=== PATIENT | male | born 1960 | race Caucasian/White ===

== ENCOUNTER 2022-10-25 08:57 | Outpatient (CLI) | payer BC, SELFPAY ==
--- NOTE | 2022-10-25 08:45 | RT.EKG_ITS ---
APPROVED REPORT Exam: Resting ECG Reason for Exam: CAD Patient Location: O HR:52 bpm ECG Measurements Heart Rate 52 AXIS NV 188 P 4 QRSd 134 QRS -1 QT 441 T -25 QTc 411 Conclusion Sinus rhythm...normal P axis, V-rate 50- 99 Atrial premature complex...SV complex w/ short R-R interval Nonspecific intraventricular conduction delay...QRSd >115mS, not LBBB/RBBB Inferior infarct, age indeterminate...Q>35mS, T neg, II III aVF
== END 2022-10-25 08:58 | disposition home or self-care (01) ==
LOC: DI.CARD 08:57
PROVIDERS: PCP Internal Medicine; Visit Provider Internal Medicine Cardiovascular Disease
DX: I25.10 Atherosclerotic heart disease of native coronary artery without angina pectoris (principal)
CPT/HCPCS: 93010

== ENCOUNTER 2023-01-01 09:39 | Day surgery (SDC) | payer BC, SELFPAY ==
[2023-01-01 10:20] VITALS: BP 138/88; PULSE 62; RESP 16; TEMP 36.4; O2SAT 96
[2023-01-01] MEDS: Lactated Ringers 1,000 ML 80 ML IV (10:55)
--- NOTE | 2023-01-01 10:57 | W.SURGCON ---
Date of service: 01/01/23 Time of Service: 10:57 Assessment and Plan Assessment and plan (1) Screening for colon cancer: Status: Acute Assessment and plan: 62-year-old man without symptoms due for colorectal cancer surveillance. Overall plan: Colonoscopy History of Present Illness Narrative: 62-year-old man had a colon polyp removed on last colonoscopy. That was 7-8 years ago. He does not have any symptoms. No family history of colon cancer. 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 was f/u Dr. Maria [facility] [place]. RH 12/31/22: Pt. stated he does not have 5 stents, but has 3, and has had x4 TX's. History of parotid cancer In remission since 2011 Surgical History History of colonoscopy with polypectomy (~12/17/14) [place] Social History (Updated 10/25/22 @ 14:17 by Lydia Crowe RN) Smoking/Tobacco Use Status: Former Tobacco Use Quit Date: 03/04/13 Smoking risk assessment performed?: Yes Alcohol Intake: former Drug use: Never Substance use type: does not use Housing: house current occupation: works for de[employer] Do you feel safe at home: Yes Do you feel safe in your relationship?: Yes Exam Narrative Exam Narrative: General: Nontoxic, comfortable and interactive Neuro: Alert and oriented x3 Psych: Good mood and affect, good insight and understanding into condition Chest: Nonlabored breathing and no wheezing Heart: Regular Results Last Vital Signs Temp 97.5 F L 01/01/23 10:20 Pulse 62 01/01/23 10:20 Resp 16 01/01/23 10:20 BP 138/88 01/01/23 10:20 Pulse Ox 96 01/01/23 10:20
--- NOTE | 2023-01-01 10:58 | COLE_ITS ---
Date of service: 01/01/23 Time of Service: 10:58 Colonoscopy Report Procedure Description: Procedures performed: 1. Colonoscopy with cold forceps polypectomy x2 Preoperative diagnosis: Surveillance colonoscopy, colon polyps Postoperative diagnosis: Colon polyps, mild diverticulosis Surgeon: Candie Sampson Anesthesia: Perry Indication for procedure: Patient is a 62-year-old man with prior history of a colorectal polyp removed 7 to 8 years ago. No family history of colon cancer. No symptoms. Findings: A small 2-3 mm sessile polyp was removed from the sigmoid colon with cold forceps technique. Another small 2-3 mm sessile polyp was removed from the rectum with cold forceps technique. There were multiple, flat, scattered hyperplastic?appearing polyps in the rectum itself as well. These were left alone. Mild diverticular changes are present in the left colon. Surveillance/follow-up recommendations: Depending on path results of the polyps but probably 7 to 10 years is acceptable. Complications: None Blood loss: Minimal Specimens:?? YES Quality of Prep:?? Good Procedure in detail: Written consent was obtained from the patient who was in agreement with the risks, benefits and indications of the procedure.? We went to the endoscopy suite and laid the patient in left lateral decubitus position.? Anesthesia was administered which was tolerated well.? A timeout was performed and when we are all in agreement we began the procedure. Digital rectal exam and visual examination was performed and within normal limits.? A well?lubricated colonoscope was advanced without difficulty all the way to the cecum identified by the ileocecal valve, and triangular folds and appendiceal orifice.? The terminal ileum was briefly intubated and look normal. The scope was then slowly withdrawn.?? Retroflexion was performed in the rect um.? The findings/interventions are noted above. The scope was then removed and the patient tolerated the procedure well and was then taken back to the PACU in hemodynamically stable condition.
--- NOTE | 2023-01-01 10:59 | W.PM.DSUDISC ---
Date of service: 01/01/23 Time of Service: 10:59 Discharge Plan Disposition Patient Disposition: Home Condition: Good Discharge Details Attending Provider: Theron Sampson Home Meds and New Rx's Prescriptions: Continued bisacodyl [Dulcolax (bisacodyl)] 5 mg tablet,delayed release (DR/EC) 5 mg PO ONCE Qty: 4 0RF Rx Instructions: Take per colonoscopy instructions provided by ordering providers office polyethylene glycol 3350 17 gram/dose powder 17 g PO ONCE Qty: 238 0RF Rx Instructions: Take per colonoscopy instructions provided by ordering providers office hydrocortisone [Anusol-HC] 2.5 % cream with perineal applicator 1 applic [place] QD-BID PRN aspirin [Adult Aspirin Regimen] 81 mg tablet,delayed release (DR/EC) 81 mg PO DAILY fluorouracil 5 % cream 1 applic topical BID lisinopril 5 mg tablet 5 mg PO DAILY metoprolol succinate 50 mg tablet extended release 24 hr 50 mg PO HS nitroglycerin [Nitrostat] 0.4 mg tablet, sublingual 0.4 mg sublingual Q5M PRN Rx Instructions: do not exceed 3 doses per episode simvastatin 80 mg tablet 80 mg PO DAILY ibuprofen [Advil] 200 mg tablet 400 mg PO ONCE Discharge Instructions Stand Alone Forms: Colonoscopy Post Instructions Activity:: Activity as Tolerated Diet:: As Tolerated DS: Diagnosis Discharge Diagnosis (1) Screening for colon cancer: Status: Acute Asessment and Plan: FINDINGS: A couple of small polyps were found today. There is nothing to worry about. Depending on the results from pathology on what type they are will dictate when your next colonoscopy should be done. Probably in 7 to 10 years. Mild diverticulosis was seen today which is extremely common, benign and nothing needs to be done about it.
--- NOTE | 2023-01-01 11:33 | W.ANESPRE ---
General Info Date of Service Date Performed: 01/01/23 Height: 5 ft 11 in Weight: 89.9 kg Body Mass Index (BMI): 27.6 Surgical Procedure: Operation Date: 01/01/23 11:50 Proposed Procedure Side Surgeon kartik Sampson MD Meds Allergies and Home Medications Allergies Allergy/AdvReac Type Severity Reaction Status Date / Time No Known Allergies Allergy Verified 01/01/23 10:40 Home Medication Medication Instructions Recorded aspirin 81 mg tablet,delayed 81 mg PO DAILY 03/20/22 release (Adult Aspirin Regimen) fluorouracil 5 % topical cream 1 applic topical BID 03/20/22 hydrocortisone 2.5 % topical cream 1 applic [place] QD-BID PRN 03/20/22 with perineal applicator (Anusol-HC) lisinopril 5 mg tablet 5 mg PO DAILY 03/20/22 metoprolol succinate 50 mg 50 mg PO HS 03/20/22 tablet,extended release 24 hr nitroglycerin 0.4 mg sublingual 0.4 mg sublingual Q5M PRN 03/20/22 tablet (Nitrostat) simvastatin 80 mg tablet 80 mg PO DAILY 03/20/22 bisacodyl 5 mg tablet,delayed 5 mg PO ONCE #4 tabs 10/04/22 release (Dulcolax (bisacodyl)) polyethylene glycol 3350 17 17 g PO ONCE #238 grams 10/04/22 gram/dose oral powder ibuprofen 200 mg tablet (Advil) 400 mg PO ONCE 01/01/23 Current Visit Medications: Current Medications Generic Name Dose Route Start Last Admin Trade Name Freq PRN Reason Stop Dose Admin Ringer's Solution 1,000 mls @ 80 mls/hr 01/01/23 06:00 01/01/23 10:55 IV 01/30/23 23:59 80 mls/hr INFUSION SHEELA Administration IV Miscellaneous Supplies 1 each 01/01/23 06:00 Iv Access IV 01/30/23 23:59 DIRECTED SHEELA Sodium Chloride 0 ml 01/01/23 06:00 Normal Saline Flush 10 Ml Syr IV 01/30/23 23:59 PRN PRN Sodium Chloride 0 ml 01/01/23 06:00 Normal Saline 10 Ml Vial IJ 01/30/23 23:59 DIRECTED PRN Sterile Water 0 ml 01/01/23 06:00 Water,Injection,Sterile 10 Ml Vial IJ 01/30/23 23:59 DIRECTED PRN PFSH Active Problems Active Problems: Problem Status Onset Code Basal cell carcinoma C44.91 Parotid mass K11.8 CHERRY (obstructive sleep apnea) G47.33 HTN (hypertension) with goal to be determined I10 HLD (hyperlipidemia) E78.5 Squamous cell carcinoma of head and neck C76.0 Hemorrhoids K64.9 Screening for colon cancer Z12.11 Medical History Medical History Tear of meniscus of left knee Myocardial infarct 1992, 1998, 2007, 2013, CAD (coronary artery disease) 10/22/22 long cardiac history including ND's x5 wit stents ',08,'14. was f/u Dr. Maria [facility] [place] last apt 01/22. RH 12/31/22: Pt. stated he does not have 5 stents, but has 3, and has had x4 ND's. History of parotid cancer In remission since 2011 Surgical History Surgical History History of colonoscopy with polypectomy (~12/17/14) [place] Tobacco Smoking/Tobacco Use Status: Former Tobacco Use Alcohol Alcohol Intake: former Substance Use Substance use: Never Substance use type: does not use Vital Signs and Lab Results Vital Signs Most Recent Vital Signs in EMR: Most Recent Vital Signs Temp Pulse Resp BP Pulse Ox 36.4 C L 62 16 138/88 96 01/01/23 10:20 01/01/23 10:20 01/01/23 10:20 01/01/23 10:20 01/01/23 10:20 Lab Results Blood Type / Crossmatch: No Data to Display Complete Blood Count: No Data to Display Complete Metabolic Panel: No Data to Display Liver Function Panel: No Data to Display Coagulation Panel: No Data to Display Cardiac Panel: No Data to Display Arterial Blood Gas: No Data to Display Venous Blood Gas: No Data to Display Pancreas Panel: No Data to Display Thyroid Panel: No Data to Display Infectious Disease: No Data to Display Blood Cultures: No Data to Display Toxicology Panel: No Data to Display Anesthesia Assessment and Plan Anesthesia History Personal History: No History of Anesthesia Complications Family History: No Family History of Anesthesia Complications Exercise Tolerance Exercise Tolerance: Metabolic Equivalents>4 Pertinent Negatives Pertinent Negatives: No Symptoms of GERD and No Major Pulmonary Symptoms or Complaints Cardiac & Pulmonary Exam Cardiac Exam: Normal S1/S2 Heart Sounds Pulmonary Exam: Clear Bilateral Breath Sounds Implantable Cardiac Device Does patient have a Pacemaker or an ICD?: No Airway Exam Known Difficult Airway: No Mallampati Class: 2 Mouth Opening: Normal (> 3cm) Thyromental Distance: Less than 3 cm Neck Range of Motion: Full ROM Neck Circumference: Normal Teeth Condition: Normal Dentition ASA Classification ASA Score: ASA 3 Emergency Case?: No NPO Status NPO Status: NPO Clears >2 hours, Solids >8 hours Anesthesia Plan Resuscitation Status: Full Code Anesthesia Technique: General Anesthesia Airway Planned: Natural Airway Monitors Used: Standard Monitors
[2023-01-01 11:35] VITALS: BMI 27.6
--- NOTE | 2023-01-01 12:05 | BOWEL_PTH ---
PATIENT: Campos Wakefield LOC: [facility] U#:[id number] AGE/SX: 62/M ROOM: RE01/01/[address]: Theron Sampson : 1960 BED: DIS: 01/01/2023 SPEC #: [id number] RECD: 01/01/23 13:00 STATUS: ALLISON RETom #: [id number] AMBER: 01/01/23 12:[address]: Theron Sampson DEPT: Surgical Specimen RECD BY: Brittney Castro Tissues: 1 - BIOPSY BOWEL Procedures: GROSS AND MICRO LEVEL 4 Comments: [id number]
[2023-01-01 12:17] VITALS: BP 108/72; PULSE 65; RESP 15; TEMP 36.6; O2SAT 95
--- NOTE | 2023-01-01 12:25 | W.COLOREPORT ---
Date of service: 01/01/23 Time of Service: 12:25 Colonoscopy Report Procedure Description: Procedures performed: 1. Colonoscopy with cold forceps polypectomy x1 Preoperative diagnosis: Surveillance colonoscopy Postoperative diagnosis: Colon polyps, sigmoid diverticulosis, sigmoid fibrosis, mild grade 1 internal hemorrhoids Surgeon: Candie Sampson Anesthesia: Perry Indication for procedure: Patient is a 62-year-old man with a history of prior adenomatous polyp removal in the past but no family history of colon cancer. His last colonoscopy was 7 to 8 years ago. Findings: A 3 to 5 mm sessile polyp was removed from the transverse colon with cold forceps technique. No other polyps seen. There is significant, borderline?severe diverticular disease throughout the sigmoid colon. No active inflammation however there is significant sigmoid fibrosis/stenosis but no actual stricture anywhere. Mild grade 1 internal hemorrhoid disease seen. Surveillance/follow-up recommendations: I think a repeat colonoscopy in 7 to 10 years is adequate depending on the path results of the polyp either being completely benign or simple adenoma. Complications: None Blood loss: Minimal Specimens:?? YES Quality of Prep:?? Good Procedure in detail: Written consent was obtained from the patient who was in agreement with the risks, benefits and indications of the procedure.? We went to the endoscopy suite and laid the patient in left lateral decubitus position.? Anesthesia was administered which was tolerated well.? A timeout was performed and when we are all in agreement we began the procedure. Digital rectal exam and visual examination was performed and within normal limits.? A well?lubricated colonoscope was advanced without difficulty all the way to the cecum identified by the ileocecal valve, and triangular folds and appendiceal orifice.? It was then slowly withdrawn.?? Retroflexion was performed in the rectum.? The findings/interventions are noted above. The scope was then removed and the patient tolerated the procedure well and was then taken back to the PACU in hemodynamically stable condition.
--- NOTE | 2023-01-01 12:29 | W.PM.DSUDISC ---
Date of service: 01/01/23 Time of Service: 12:29 Discharge Plan Disposition Patient Disposition: Home Condition: Good Discharge Details Attending Provider: Theron Sampson Home Meds and New Rx's Prescriptions: Continued bisacodyl [Dulcolax (bisacodyl)] 5 mg tablet,delayed release (DR/EC) 5 mg PO ONCE Qty: 4 0RF Rx Instructions: Take per colonoscopy instructions provided by ordering providers office polyethylene glycol 3350 17 gram/dose powder 17 g PO ONCE Qty: 238 0RF Rx Instructions: Take per colonoscopy instructions provided by ordering providers office hydrocortisone [Anusol-HC] 2.5 % cream with perineal applicator 1 applic [place] QD-BID PRN aspirin [Adult Aspirin Regimen] 81 mg tablet,delayed release (DR/EC) 81 mg PO DAILY fluorouracil 5 % cream 1 applic topical BID lisinopril 5 mg tablet 5 mg PO DAILY metoprolol succinate 50 mg tablet extended release 24 hr 50 mg PO HS nitroglycerin [Nitrostat] 0.4 mg tablet, sublingual 0.4 mg sublingual Q5M PRN Rx Instructions: do not exceed 3 doses per episode simvastatin 80 mg tablet 80 mg PO DAILY ibuprofen [Advil] 200 mg tablet 400 mg PO ONCE Discharge Instructions Stand Alone Forms: Colonoscopy Post Instructions Activity:: Activity as Tolerated Diet:: As Tolerated Discharge Orders Discharge Orders: Discharge Order (Routine); Ordered 01/01/23 Ordered By: Theron Sampson DS: Diagnosis Discharge Diagnosis (1) Screening for colon cancer: Status: Acute Asessment and Plan: FINDINGS: A small polyp was found and removed today. It is nothing to worry about but the results will dictate when your next colonoscopy should be done. Probably in 7 to 10 years is okay. You have significant diverticular disease. This is a benign and chronic condition and extremely common. As long as you do not have symptoms from it there is nothing that needs to be done for it.
[2023-01-01 12:45] VITALS: BP 147/90; PULSE 53; RESP 15; TEMP 36.6; O2SAT 98
--- NOTE | 2023-01-01 13:45 | W.ANESPOSTOP ---
Postoperative Evaluation Date, Time and Location Date Performed: 01/01/23 Time Performed: 12:50 Patient Location: Day Surgery Unit Vital Signs Most Recent Imported Vital Signs: Most Recent Vital Signs Temp Pulse Resp BP Pulse Ox 36.6 C 53 L 15 147/90 H 98 01/01/23 12:45 01/01/23 12:45 01/01/23 12:45 01/01/23 12:45 01/01/23 12:45 Pain Score Most Recent Pain Score: Most Recent Pain Score Pain Level 0 01/01/23 12:45 Assessment Mental Status: Awake (Alert & Oriented to Patient Baseline) Airway and Respiratory Function: Patent airway with normal (patient baseline) respiratory exam Cardiovascular Function: Hemodynamically Stable Hydration Status: Adequately Hydrated Nausea & Vomiting: No Nausea or Vomiting Pain: Pt. Denies Any Pain Peripheral Nerve Block: Patient did not receive a nerve block
== END 2023-01-01 13:00 | disposition home or self-care (01) ==
PROVIDERS: Visit Provider Student in an Organized Health Care Education/Training Program
PROC: 0DJD8ZZ Inspection of Lower Intestinal Tract, Via Natural or Artificial Opening Endoscopic (ICD-10-PCS; CPT 45378; principal; 2023-01-01 11:45)
DX: Z12.11 Encounter for screening for malignant neoplasm of colon (principal); Z86.010 Personal history of colon polyps; K57.30 Diverticulosis of large intestine without perforation or abscess without bleeding; D12.3 Benign neoplasm of transverse colon; K64.0 First degree hemorrhoids; G47.33 Obstructive sleep apnea (adult) (pediatric); I10 Essential (primary) hypertension
CPT/HCPCS: 45380; 00123; 88305